=== PATIENT | male | born 1995 | race Hispanic/Latino ===

== ENCOUNTER 2025-06-22 13:04 | Emergency (ER) | payer OTHER ==
[~2025-06-22] VITALS: Ht 175.3 cm; Wt 73.5 kg
[2025-06-22 13:10] VITALS: TEMP 98
[2025-06-22 14:00] VITALS: PULSE 72; RESP 17; O2SAT 100
[2025-06-22 14:05] LABS: BASOPHILS % 0.2 % (0.0-1.0); EOSINOPHILS % 2.5 % (0.0-6.0); LYMPHOCYTES % 39.6 % (18.0-39.1); MONOCYTES % 7.3 % (4.4-11.3); NEUTROPHILS % 50.2 % (38.7-80.0); RED CELL DISTRIBUTION WIDTH 11.9 % (11.7-14.4)
[2025-06-22 14:18] LABS: EST GLOMERULAR FILTRATION RATE 118.0 ML/MIN (>=60)
== END 2025-06-22 14:48 | disposition home or self-care (01) ==
LOC: ER 13:08
DX: R20.2 Paresthesia of skin (principal); M53.82 Other specified dorsopathies, cervical region
CPT/HCPCS: 36415; 80053; 84484; 85025; 93005; 99283